=== PATIENT | female | born 1945 | race Hispanic/Latino ===

== ENCOUNTER 2017-12-08 03:48 | Emergency (ER) | payer MEDICARE ==
[2017-12-08] MEDS ORDERED: BENADRYL IV ONE ×2 (08:05→10:12)
[2017-12-08] MEDS ORDERED: DECADRON IV ONE (08:06)
--- NOTE | 2017-12-08 08:07 | Emergency Department Report ---
- General Chief complaint: Skin Rash Stated complaint: RASH , ITCHING Time Seen by Provider: 12/08/17 07:39 Source: patient Mode of arrival: Ambulatory Limitations: No Limitations - History of Present Illness Initial comments: 72-year-old female past medical history diabetes hypertension presents with complaint of itchy painful red rash spreading on arms and legs. Patient states she was recently treated for cellulitis with clindamycin and was evaluated and admitted at [facility] within the last 2 weeks for this issue. Patient states that rash is getting redder and more painful and spreading up her arms and has new lesions on her legs. complaint: rash - Related Data Previous Rx's Medication Instructions Recorded Last Taken Type Doxycycline [Vibramycin CAP] 100 mg PO Q12HR #14 capsule 12/08/17 Unknown Rx Hydrocortisone 1% [Hydrocortisone 1 applicatio TP TID #1 tube 12/08/17 Unknown Rx 1% CREAM] Hydroxyzine HCl 25 mg PO Q8H PRN #20 tablet 12/08/17 Unknown Rx Mupirocin [Bactroban 2% CREAM] 1 applicatio TP TID #1 cream 12/08/17 Unknown Rx Allergies Allergy/AdvReac Type Severity Reaction Status Date / Time Penicillins Allergy Rash Verified 12/08/17 07:19 Abscess Boil HPI - HPI Chief Complaint: Skin Rash Stated Complaint: RASH , ITCHING Time Seen by Provider: 12/08/17 07:39 Home Medications: Previous Rx's Medication Instructions Recorded Last Taken Type Doxycycline [Vibramycin CAP] 100 mg PO Q12HR #14 capsule 12/08/17 Unknown Rx Hydrocortisone 1% [Hydrocortisone 1 applicatio TP TID #1 tube 12/08/17 Unknown Rx 1% CREAM] Hydroxyzine HCl 25 mg PO Q8H PRN #20 tablet 12/08/17 Unknown Rx Mupirocin [Bactroban 2% CREAM] 1 applicatio TP TID #1 cream 12/08/17 Unknown Rx Allergies/Adverse Reactions: Allergies Allergy/AdvReac Type Severity Reaction Status Date / Time Penicillins Allergy Rash Verified 12/08/17 07:19 ED Review of Systems ROS: Stated complaint: RASH , ITCHING Other details as noted in HPI Constitutional: denies: chills, fever Eyes: denies: eye pain, eye discharge, vision change ENT: denies: ear pain, throat pain Respiratory: denies: cough, shortness of breath, wheezing Cardiovascular: denies: chest pain, palpitations Endocrine: no symptoms reported Gastrointestinal: denies: abdominal pain, nausea, diarrhea Genitourinary: denies: urgency, dysuria, discharge Musculoskeletal: denies: back pain, joint swelling, arthralgia Skin: denies: rash, lesions Neurological: as per HPI. denies: headache, weakness, paresthesias Psychiatric: denies: anxiety, depression Hematological/Lymphatic: denies: easy bleeding, easy bruising ED Past Medical Hx - Past Medical History Hx Hypertension: Yes Hx Diabetes: Yes - Social History Smoking Status: Never Smoker Substance Use Type: None - Medications Home Medications: Home Medications Medication Instructions Recorded Confirmed Last Taken Type Doxycycline [Vibramycin CAP] 100 mg PO Q12HR #14 capsule 12/08/17 Unknown Rx Hydrocortisone 1% [Hydrocortisone 1 applicatio TP TID #1 tube 12/08/17 Unknown Rx 1% CREAM] Hydroxyzine HCl 25 mg PO Q8H PRN #20 tablet 12/08/17 Unknown Rx Mupirocin [Bactroban 2% CREAM] 1 applicatio TP TID #1 cream 12/08/17 Unknown Rx ED Physical Exam - General Limitations: No Limitations General appearance: alert, in no apparent distress - Head Head exam: Present: atraumatic, normocephalic - Eye Eye exam: Present: normal appearance - ENT ENT exam: Present: mucous membranes moist - Neck Neck exam: Present: normal inspection - Respiratory Respiratory exam: Present: normal lung sounds bilaterally. Absent: respiratory distress - Cardiovascular Cardiovascular Exam: Present: regular rate, normal rhythm. Absent: systolic murmur, diastolic murmur, rubs, gallop - GI/Abdominal GI/Abdominal exam: Present: soft, normal bowel sounds - Extremities Exam Extremities exam: Present: normal inspection - Back Exam Back exam: Present: normal inspection - Neurological Exam Neurological exam: Present: alert, oriented X3, CN II-XII intact, normal gait - Psychiatric Psychiatric exam: Present: normal affect, normal mood - Skin Skin exam: Present: warm, dry, intact, normal color. Absent: rash - Expanded Skin Exam Expanded Description of rash: Present: erythematous 1 - Area erythema and visible excoriations on her 2 - Erythema and visible excoriation on arm 3 - Some ecchymosis on legs. ED Course Vital Signs 12/08/17 12/08/17 12/08/17 07:19 08:35 08:36 Temperature 97.7 F 98.0 F Pulse Rate 80 80 Respiratory 18 16 16 Rate Blood Pressure 199/51 Blood Pressure 189/60 [Left] O2 Sat by Pulse 97 98 Oximetry ED Medical Decision Making - Lab Data Result diagrams: 12/08/17 08:25 12/08/17 08:25 - Medical Decision Making A/P: Upper extremity cellulitis, sunburn, dehydration 1- hydroxyzine when necessary, topical hydrocortisone, topical Aquaphor 2- Bactroban to excoriation 3- as per my discussion with Dr. Roman will switch patient's current antibiotic from clindamycin. Will switch to doxycycline. I advised patient to avoid direct sunlight while taking doxycycline. Patient stated she understood my instructions, i provided pt with follow-up with dermatology. She states she knows this practice and will follow up within the next week 4- follow-up with primary care doctor. I advised patient to return to the ED for fevers chills nausea vomiting or rapid expansion of erythema. Critical care attestation.: If time is entered above; I have spent that time in minutes in the direct care of this critically ill patient, excluding procedure time. ED Disposition Clinical Impression: Cellulitis, upper arm, Sunburn Disposition: - TO HOME OR SELFCARE Is pt being admited?: No Does the pt Need Aspirin: No Condition: Stable Instructions: Cellulitis (ED), Sunburn (ED) Prescriptions: Doxycycline [Vibramycin CAP] 100 mg PO Q12HR #14 capsule Hydrocortisone 1% [Hydrocortisone 1% CREAM] 1 applicatio TP TID #1 tube Hydroxyzine HCl 25 mg PO Q8H PRN #20 tablet PRN Reason: Itching Mupirocin [Bactroban 2% CREAM] 1 applicatio TP TID #1 cream Referrals: PRIMARY CARE, [Primary Care Provider] - 3-5 Days [facility] [Provider Group] - 3-5 Days [facility] [Provider Group] - 3-5 Days Time of Disposition: 11:41
[2017-12-08 08:40] VITALS: BP 189/60
[2017-12-08 08:41] LABS: Basophils # (Auto) 0.1 K/mm3 (0.0-0.1); Basophils % (Auto) 0.9 % (0.0-1.8); Eosinophils # (Auto) 0.7 K/mm3 (0.0-0.4); Eosinophils % (Auto) 8.8 % (0.0-4.3); Hematocrit 37.3 % (30.3-42.9); Hemoglobin 12.6 gm/dl (10.1-14.3); Lymphocytes # (Auto) 1.9 K/mm3 (1.2-5.4); Lymphocytes % (Auto) 24.9 % (13.4-35.0); Mean Corpuscular HGB Conc 34 % (30-34); Mean Corpuscular Hemoglobin 31 pg (28-32); Mean Corpuscular Volume 90 fl (79-97); Monocytes # (Auto) 0.5 K/mm3 (0.0-0.8); Monocytes % (Auto) 7.2 % (0.0-7.3); Platelet Count 248 K/mm3 (140-440); Red Blood Count 4.13 M/mm3 (3.65-5.03); Red Cell Distribution Width 13.3 % (13.2-15.2)
[2017-12-08 08:51] LABS: INR 0.97 (0.87-1.13)
[2017-12-08 08:52] LABS: Partial Thromboplastin Time 30.8 Sec. (24.2-36.6)
[2017-12-08 09:53] LABS: Alanine Aminotransferase 28 units/L (7-56); Albumin 4.2 g/dL (3.9-5); BUN/Creatinine Ratio 44; Blood Urea Nitrogen 22 mg/dL (7-17); Calcium 9.7 mg/dL (8.4-10.2); Hemolysis Index 6
[2017-12-08] MEDS ORDERED: NACL 0.9% 1000 ML 1,000 ML IV ONE (09:55)
[2017-12-08 10:01] LABS: Bilirubin,Direct < 0.2 mg/dL (0-0.2)
--- NOTE | 2017-12-08 10:30 | Emergency Department Report ---
Blank Doc - Documentation Documentation: I have performed a [id number] with this patient. I agree with the documentation by the JOSE. Patient has some redness with itching and pain to the bilateral upper extremities. There is also some bruising of unknown origin to the bilateral lower extremities. Patient has been on clindamycin however the lesions on the arms actually looked more like a rash as opposed to cellulitis. Patient never antibiotic changes in case this is some mild cellulitis secondary to itching and scratching. The patient also started on meds for allergic reaction as well. Patient's laboratory studies showed his hyponatremia is mild she will receive IV fluids. The patient be discharged home with dermatology follow-up.
== END 2017-12-08 14:24 | disposition home or self-care (01) ==
LOC: ED 03:48
DX: S80.12XA Contusion of left lower leg, initial encounter (principal); L03.114 Cellulitis of left upper limb; L03.113 Cellulitis of right upper limb; I10 Essential (primary) hypertension; E11.9 Type 2 diabetes mellitus without complications; Z88.0 Allergy status to penicillin; S80.11XA Contusion of right lower leg, initial encounter; X58.XXXA Exposure to other specified factors, initial encounter; Y93.89 Activity, other specified; Y92.89 Other specified places as the place of occurrence of the external cause; Y99.8 Other external cause status
CPT/HCPCS: 36415; 80048; 80074; 82140; 82550; 85025; 85610; 85730; 96374; 96375; 96376; 99283; J1100; J1200; J7030; 96361